=== PATIENT | male | born 1970 | race Caucasian/White ===

== ENCOUNTER 2018-10-12 03:39 | Emergency (ER) | payer MEDICAID, OTHER ==
[~2018-10-12] VITALS: Ht 170.2 cm; Wt 62.0 kg
[2018-10-12 03:41] VITALS: BP 128/78
--- NOTE | 2018-10-12 04:12 | NUR ---
[employer] OFFICER AT BEDSIDE TO INTERVIEW PATIENT.
== END 2018-10-12 04:41 | disposition home or self-care (01) ==
LOC: ER 03:40
DX: S01.81XA Laceration without foreign body of other part of head, initial encounter (principal); Z86.14 Personal history of Methicillin resistant Staphylococcus aureus infection; F15.90 Other stimulant use, unspecified, uncomplicated; Y04.0XXA Assault by unarmed brawl or fight, initial encounter; Y93.89 Activity, other specified; Y92.89 Other specified places as the place of occurrence of the external cause; Y99.8 Other external cause status
CPT/HCPCS: 12011; 99283

== ENCOUNTER 2018-10-15 01:01 | Emergency (ER) | payer OTHER ==
[~2018-10-15] VITALS: Ht 167.6 cm; Wt 58.9 kg
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
[2018-10-15] MEDS ORDERED: bacitracin 15gm ointment TP ONE (01:50)
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
[2018-10-15] MEDS ORDERED: ketorolac trometh inj. 60 MG/2 ML VIAL IM ONE (02:35)
[2018-10-15] MEDS ORDERED: acetaminophen 325mg tablet PO ONE (02:35)
[2018-10-15] MEDS ORDERED: normal saline 1000ML IV soln IVB ONE (03:55)
[2018-10-15] MEDS ORDERED: magnesium 2GM in 50ml NS 50 ML IV ONE (03:55)
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
[2018-10-15] MEDS ORDERED: adenosine 3mg/ml 2ml vial IV ONE (04:05)
[2018-10-15] MEDS ORDERED: LORazepam 2 mg/ml vial IV ONE (04:05)
--- NOTE | 2018-10-15 04:24 | NUR ---
Time out performed prior to giving 6mg of adensone patient rate slowed to 96bpm from 134bpm
[2018-10-15 05:33] LABS: BASOPHILS % (AUTO) 0.4 % (0-1); EOSINOPHILS # (AUTO) 0.7 X10'3 (0-0.9); EOSINOPHILS % (AUTO) 7.2 % (0-6); HEMOGLOBIN 11.2 g/dl (14.0-17.9); LYMPHOCYTES # (AUTO) 1.7 X10'3 (1.1-4.8); LYMPHOCYTES % (AUTO) 18.3 % (21-51); MEAN CORPUSCULAR HEMOGLOBIN 31.2 PG (27.0-31.0); MEAN CORPUSCULAR HGB CONC 33.9 % (33.0-36.5); MONOCYTES # (AUTO) 0.9 X10'3 (0-0.9); MONOCYTES % (AUTO) 9.4 % (2-12); NEUTROPHILS # (AUTO) 6.2 X10'3 (1.8-7.7); NEUTROPHILS % (AUTO) 64.7 % (42-75); PLATELET COUNT 175 X10'3 (140-440); RED BLOOD COUNT 3.59 X10'6 (4.70-6.10); RED CELL DISTRIBUTION WIDTH 13.2 % (11.5-14.5); WHITE BLOOD COUNT 9.5 X10'3 (4.5-11.0)
[2018-10-15 05:50] LABS: ALANINE AMINOTRANSFERASE 23 U/L (12-78); ALBUMIN 2.8 G/DL (3.4-5.0); ALBUMIN/GLOBULIN RATIO 1.1 (1.1-1.5); ALKALINE PHOSPHATASE 64 IU/L (46-116); ANION GAP 8 (8-16); ASPARTATE AMINO TRANSFERASE 24 U/L (10-37); BILIRUBIN,TOTAL 0.2 MG/DL (0.1-1.0); BLOOD UREA NITROGEN 15 MG/DL (7-18); BUN/CREATININE RATIO 22.4 (5.4-32.0); CALCIUM 6.6 MG/DL (8.5-10.1); CHLORIDE 111 MMOL/L (99-107); CREATININE 0.67 MG/DL (0.60-1.10); GLUCOSE 130 MG/DL (70-104); MAGNESIUM 2.2 MG/DL (1.5-2.4); SODIUM 143 MMOL/L (135-145); TOTAL CARBON DIOXIDE 24.4 MMOL/L (24-32); TOTAL PROTEIN 5.3 G/DL (6.4-8.2); eGFR > 90 ML/MIN
[2018-10-15 06:08] LABS: POTASSIUM 2.9 MMOL/L (3.5-5.1)
[2018-10-15] MEDS ORDERED: potassium Cl 20 mEq SR tablet PO STA (06:16)
[2018-10-15 06:38] VITALS: BP 106/68
== END 2018-10-15 06:42 | disposition home or self-care (01) ==
LOC: ER 01:02
DX: S01.01XA Laceration without foreign body of scalp, initial encounter (principal); S80.12XA Contusion of left lower leg, initial encounter; I47.1 Supraventricular tachycardia; E87.6 Hypokalemia; Z86.14 Personal history of Methicillin resistant Staphylococcus aureus infection; F15.90 Other stimulant use, unspecified, uncomplicated; Z59.0 Homelessness; Y04.8XXA Assault by other bodily force, initial encounter; Y93.89 Activity, other specified; Y92.89 Other specified places as the place of occurrence of the external cause; Y99.8 Other external cause status
CPT/HCPCS: 12001; 36415; 70450; 73590; 80053; 83735; 85025; 93005; 93971; 96365; 96366; 96372; 96375; 99284; J1885; J2060; J3475

== ENCOUNTER 2018-11-09 07:03 | Emergency (ER) | payer OTHER ==
[~2018-11-09] VITALS: Ht 167.6 cm; Wt 77.3 kg
[2018-11-09 07:07] VITALS: BP 106/64
--- NOTE | 2018-11-09 07:16 | NUR ---
PER MD ORDERS REMOVE THE ONE STAPLE FROM PT'S HEAD, NO REDNESS OR SWELLING OR PAIN.
== END 2018-11-09 07:30 | disposition home or self-care (01) ==
LOC: ER 07:04
DX: S01.01XD Laceration without foreign body of scalp, subsequent encounter (principal); F15.90 Other stimulant use, unspecified, uncomplicated; F19.90 Other psychoactive substance use, unspecified, uncomplicated; Z59.0 Homelessness; Z86.14 Personal history of Methicillin resistant Staphylococcus aureus infection; Y04.8XXD Assault by other bodily force, subsequent encounter
CPT/HCPCS: 99281

== ENCOUNTER 2022-06-19 09:05 | Emergency (ER) | payer MEDICAID ==
[~2022-06-19] VITALS: Ht 167.6 cm; Wt 63.6 kg
[2022-06-19 09:29] VITALS: BP 123/74
[2022-06-19] MEDS ORDERED: CEPH-585 PO (09:34)
== END 2022-06-19 09:48 | disposition home or self-care (01) ==
LOC: ER 09:05
DX: L02.511 Cutaneous abscess of right hand (principal); Z59.00 Homelessness unspecified
CPT/HCPCS: 99283

== ENCOUNTER 2022-09-27 20:16 | Emergency (ER) | payer MEDICAID ==
[~2022-09-27] VITALS: Ht 167.6 cm; Wt 61.8 kg
[~2022-09-27 20:16] MED LIST: CEPH-585 PO
[2022-09-27] MEDS ORDERED: LIDOcaine Viscous 15ml cup MM ONE (23:45)
[2022-09-27 23:46] VITALS: BP 120/70
== END 2022-09-28 00:06 | disposition home or self-care (01) ==
LOC: ER 20:16
DX: J02.9 Acute pharyngitis, unspecified (principal); F15.20 Other stimulant dependence, uncomplicated; Z59.00 Homelessness unspecified
CPT/HCPCS: 87081; 87880; 99283

== ENCOUNTER 2024-05-13 09:23 | Emergency (ER) | payer MEDICAID ==
[~2024-05-13] VITALS: Ht 162.6 cm; Wt 68.2 kg
[2024-05-13 09:25] VITALS: BP 131/84; PULSE 78; RESP 16; TEMP 98.4; O2SAT 99
[2024-05-13] MEDS ORDERED: BUPR1FIL3 SL (09:41)
[2024-05-13] MEDS ORDERED: NALO4SPR5 (09:44)
== END 2024-05-13 09:54 | disposition home or self-care (01) ==
LOC: ER 09:23
DX: F11.20 Opioid dependence, uncomplicated (principal); F15.90 Other stimulant use, unspecified, uncomplicated; Z79.899 Other long term (current) drug therapy
CPT/HCPCS: 99283

== ENCOUNTER 2024-07-25 17:39 | Inpatient (IN) | payer MEDICAID ==
[~2024-07-25] VITALS: Ht 170.2 cm; Wt 78.1 kg
[~2024-07-25 17:39] MED LIST changes: -CEPH-585 PO; +NALO4SPR5
[2024-07-25 18:12] LABS: BASOPHILS % (AUTO) 0.5 % (0-1); EOSINOPHILS # (AUTO) 0.1 X10'3 (0-0.9); EOSINOPHILS % (AUTO) 1.2 % (0-6); HEMATOCRIT 43.2 % (42.0-52.0); HEMOGLOBIN 14.4 g/dl (14.0-17.9); LYMPHOCYTES # (AUTO) 1.8 X10'3 (1.1-4.8); LYMPHOCYTES % (AUTO) 21.6 % (21-51); MEAN CORPUSCULAR HEMOGLOBIN 29.9 PG (27.0-31.0); MEAN CORPUSCULAR HGB CONC 33.4 g/dL (33.0-36.5); MEAN CORPUSCULAR VOLUME 89.5 FL (78-98); MEAN PLATELET VOLUME 8.2 FL (7.4-10.4); MONOCYTES # (AUTO) 0.7 X10'3 (0-0.9); NEUTROPHILS # (AUTO) 5.5 X10'3 (1.8-7.7); NEUTROPHILS % (AUTO) 67.7 % (42-75); PLATELET COUNT 228 X10'3 (140-440); RED BLOOD COUNT 4.82 X10'6 (4.70-6.10); RED CELL DISTRIBUTION WIDTH 14.1 % (11.5-14.5); WHITE BLOOD COUNT 8.2 X10'3 (4.5-11.0)
[2024-07-25 18:31] LABS: ALBUMIN 4.4 G/DL (3.4-5.0); ANION GAP 6 (8-16); BLOOD UREA NITROGEN 23 MG/DL (7-18); BUN/CREATININE RATIO 25.6 (10.0-20.0); CHLORIDE 101 MMOL/L (99-107); GLUCOSE 106 MG/DL (70-104); POTASSIUM 3.9 MMOL/L (3.5-5.1); SODIUM 136 MMOL/L (135-145); TOTAL CARBON DIOXIDE 28.8 MMOL/L (24-32); eCRCL 86 ML/MIN; eGFR 88 ML/MIN
[2024-07-25 18:32] LABS: ETHANOL < 10 MG/DL (<10)
[2024-07-25] MEDS ORDERED: BUPR1FIL3 SL (18:42)
[2024-07-25 19:15] LABS: URINE AMPHETAMINE SCREEN NEGATIVE (Neg); URINE BARBITUATE SCREEN NEGATIVE (Neg); URINE BENZODIAZEPINES SCREEN NEGATIVE (Neg); URINE CANNABINOID SCREEN NEGATIVE (Neg); URINE COCAINE SCREEN NEGATIVE (Neg); URINE METHADONE SCREEN NEGATIVE (Neg); URINE OPIATE SCREEN NEGATIVE (Neg); URINE PHENCYCLIDINE SCREEN NEGATIVE (Neg)
[2024-07-25 19:17] LABS: BILIRUBIN,URINE NEGATIVE (Neg); CLARITY,URINE CLEAR (Clear); COLOR,URINE YELLOW (Yellow); GLUCOSE, URINE NEGATIVE (Neg); KETONES,URINE TRACE mg/dl (Neg); LEUKOCYTE ESTERASE ,URINE NEGATIVE (Neg); NITRITES, URINE NEGATIVE (Neg); OCCULT BLOOD,URINE NEGATIVE (Neg); PH,URINE 6.5 (4.8-8.0); PROTEIN,URINE TRACE mg/dl (Neg); UROBILINOGEN,URINE 0.2 E.U/dL (0.2-1.0)
[2024-07-25 19:24] LABS: UA COLLECTION TYPE VOIDED
[2024-07-25 19:32] LABS: BACTERIA,URINE NONE SEEN /HPF (Neg); HYALINE CASTS 0-3 /LPF (NEGATIVE); MUCUS STRANDS MANY /LPF (Neg); RBC,URINE 0-2 /HPF (0-2); SQUAMOUS EPITHELIAL CELL,UR FEW /LPF (FEW)
[2024-07-25 19:33] LABS: WBC CASTS 0-3 /LPF (NEGATIVE)
[2024-07-25] MEDS: LORazepam 1 MG tablet PO ONE (19:51)
[2024-07-26] MEDS: LORazepam 1 MG tablet PO SCH (12:52)
[2024-07-26 14:27] VITALS: BP 115/69; PULSE 61; RESP 18; TEMP 97; O2SAT 99
[2024-07-26] MEDS ORDERED: acetaminophen 325mg tablet PO PRN ×2 (14:30)
[2024-07-26] MEDS ORDERED: loperamide 2mg capsule PO PRN (14:30)
[2024-07-26] MEDS ORDERED: mag hydrox/Alum hydrox/simeth 30ml oral suspension PO PRN (14:30)
[2024-07-26 14:59] VITALS: RESP 18; O2SAT 99
[2024-07-26] MEDS ORDERED: FLU VACC TS2024-25(6MOS UP)/PF 45 MCG/0.5 ML SYRINGE IMVAC ONE (16:50)
[2024-07-26 19:55] VITALS: RESP 14; O2SAT 97
[2024-07-26 19:58] VITALS: BP 100/72; PULSE 66; RESP 14; TEMP 97.6; O2SAT 97
[2024-07-26] MEDS: buprenorphine/naloxone 8MG-2MG SUBlingual film SL SCH (20:03)
[2024-07-27 07:15] VITALS: BP 93/54; PULSE 66; RESP 16; TEMP 97.9; O2SAT 95
[2024-07-27 09:00] LABS: CHOL/HDL RATIO 3.4 (0.00-4.99); CHOLESTEROL 178 MG/DL (0-200); HDL CHOLESTEROL 53 MG/DL (35-60); LDL CHOLESTEROL 108 MG/DL (50-100); TRIGLYCERIDES 55 MG/DL (20-135)
[2024-07-27 09:02] LABS: HEMOGLOBIN A1C 5.6 % (4.5-6.2)
[2024-07-27 09:04] VITALS: RESP 16; O2SAT 95
[2024-07-27] MEDS: FLU VACC TS2024-25(6MOS UP)/PF 45 MCG/0.5 ML SYRINGE IMVAC ONE (10:00)
[2024-07-27] MEDS: LORazepam 1 MG tablet PO ONE (14:47)
[2024-07-27] MEDS: FLUoxetine 20mg capsule PO ONE (17:55)
[2024-07-27 19:00] VITALS: RESP 16; O2SAT 94
[2024-07-27 19:23] VITALS: BP 101/57; PULSE 62; RESP 16; TEMP 98.9; O2SAT 94
[2024-07-28 07:00] VITALS: RESP 16; O2SAT 96
[2024-07-28 08:00] VITALS: BP 105/67; PULSE 75; RESP 16; TEMP 98.1; O2SAT 96
[2024-07-28] MEDS: FLUoxetine 20mg capsule PO SCH (08:20)
[2024-07-28 19:00] VITALS: BP 108/59; PULSE 60; RESP 18; TEMP 98.8; O2SAT 95
[2024-07-28] MEDS ORDERED: gabapentin 400mg capsule PO SCH (21:00)
[2024-07-28] MEDS: gabapentin 300mg capsule PO SCH (21:42)
[2024-07-28] MEDS: LORazepam 1 MG tablet PO SCH (21:42)
[2024-07-28] MEDS: magnesium hydroxide 30ml (MOM) UD suspension PO PRN (21:45)
[2024-07-29 05:25] LABS: HBSAG SCREEN Negative (Negative); HEP B CORE AB, IGM Negative (Negative); HEP B CORE AB, TOT Positive (Negative); HEP B SURF AB Reactive (.); HEPATITIS C VIRUS ANTIBODY Reactive (Non Reactive)
[2024-07-29 07:00] VITALS: BP 94/56; PULSE 55; RESP 14; TEMP 97.2; O2SAT 97
[2024-07-29] MEDS: BUPROPION HCL 150MG XL 24 HR 150 MG TAB PO SCH (08:35)
[2024-07-29 19:00] VITALS: BP 133/73; PULSE 63; RESP 16; TEMP 98.4; O2SAT 96
[2024-07-30 09:33] VITALS: BP 88/55; PULSE 60; RESP 16; TEMP 98; O2SAT 95
[2024-07-30 12:13] VITALS: RESP 16; O2SAT 95
[2024-07-30 19:00] VITALS: BP 90/53; PULSE 71; RESP 18; TEMP 97.3; O2SAT 96
[2024-07-31] MEDS ORDERED: LORazepam 1 MG tablet PO PRN (08:00)
[2024-07-31 11:00] VITALS: BP 110/48; PULSE 62; RESP 14; TEMP 97.6; O2SAT 98
[2024-07-31 11:02] VITALS: RESP 14; O2SAT 98
[2024-07-31] MEDS: gabapentin 400mg capsule PO SCH (13:13)
[2024-07-31 19:00] VITALS: BP 120/74; PULSE 57; RESP 16; TEMP 97.2; O2SAT 95
[2024-07-31] MEDS: LORazepam 0.5 MG tablet PO PRN (21:23)
[2024-08-01 07:40] VITALS: BP 103/62; PULSE 70; RESP 16; TEMP 98.1; O2SAT 98
[2024-08-01 09:41] VITALS: RESP 16; O2SAT 98
[2024-08-01] MEDS: gabapentin 300mg capsule PO SCH (13:40)
[2024-08-01 19:00] VITALS: RESP 14; O2SAT 95
[2024-08-01 20:00] VITALS: BP 98/51; PULSE 60; RESP 17; TEMP 97.4; O2SAT 95
[2024-08-02 07:39] VITALS: BP 98/63; PULSE 52; RESP 14; TEMP 97.1; O2SAT 94
[2024-08-02 08:40] VITALS: RESP 14; O2SAT 94
[2024-08-02] MEDS ORDERED: BUPR-94 PO (15:19)
[2024-08-02] MEDS ORDERED: gabapentin capsule PO (15:19)
[2024-08-02] MEDS ORDERED: BUPR1FIL3 SL (15:19)
[2024-08-02 19:00] VITALS: RESP 16; O2SAT 95
[2024-08-02 19:36] VITALS: BP 110/63; PULSE 52; RESP 14; TEMP 98.4; O2SAT 97
== END 2024-08-03 09:35 | disposition home or self-care (01) | DRG 754 ==
LOC: ER 17:39 → ED HOLD 07-26 12:00 → UNDOADMIN 07-26 12:00 → ED HOLD 07-26 14:17 → ADULT MH 07-26 14:19
PROVIDERS: ADMIT Psychiatry & Neurology Psychiatry; ATTEND Psychiatry & Neurology Psychiatry
PROC: GZHZZZZ Group Psychotherapy (ICD-10-PCS; principal; 2024-07-27)
PROC: GZ51ZZZ Individual Psychotherapy, Behavioral (ICD-10-PCS; 2024-07-27)
DX: F32.9 Major depressive disorder, single episode, unspecified (principal); R45.851 Suicidal ideations; F41.9 Anxiety disorder, unspecified; Z20.822 Contact with and (suspected) exposure to COVID-19; F15.90 Other stimulant use, unspecified, uncomplicated; F17.210 Nicotine dependence, cigarettes, uncomplicated; Z59.00 Homelessness unspecified
CPT/HCPCS: 36415; 80048; 80061; 80305; 80320; 81001; 83036; 84443; 85025; 86704; 86705; 86706; 86803; 87081; 87340; 87522; 87811; 90686; 93005; 99285

== ENCOUNTER 2024-11-25 11:00 | Inpatient (IN) | payer MEDICAID ==
[~2024-11-25] VITALS: Ht 167.6 cm; Wt 76.7 kg
[~2024-11-25 11:00] MED LIST changes: +BUPR-94 PO; +BUPR1FIL3 SL; -NALO4SPR5; +gabapentin capsule PO
[2024-11-25 11:31] LABS: BASOPHILS % (AUTO) 0.5 % (0-1); EOSINOPHILS # (AUTO) 0.3 X10'3 (0-0.9); EOSINOPHILS % (AUTO) 3.2 % (0-6); HEMATOCRIT 43.2 % (42.0-52.0); HEMOGLOBIN 14.3 g/dl (14.0-17.9); LYMPHOCYTES # (AUTO) 1.7 X10'3 (1.1-4.8); LYMPHOCYTES % (AUTO) 21.3 % (21-51); MEAN CORPUSCULAR HEMOGLOBIN 29.5 PG (27.0-31.0); MEAN CORPUSCULAR HGB CONC 33.1 g/dL (33.0-36.5); MEAN CORPUSCULAR VOLUME 89.1 FL (78-98); MEAN PLATELET VOLUME 8.2 FL (7.4-10.4); MONOCYTES # (AUTO) 0.5 X10'3 (0-0.9); MONOCYTES % (AUTO) 6.3 % (2-12); NEUTROPHILS # (AUTO) 5.4 X10'3 (1.8-7.7); NEUTROPHILS % (AUTO) 68.7 % (42-75); PLATELET COUNT 215 X10'3 (140-440); RED BLOOD COUNT 4.85 X10'6 (4.70-6.10); RED CELL DISTRIBUTION WIDTH 14.5 % (11.5-14.5); WHITE BLOOD COUNT 7.9 X10'3 (4.5-11.0)
[2024-11-25 12:04] LABS: ALBUMIN 4.1 G/DL (3.4-5.0); ANION GAP 7 (8-16); BLOOD UREA NITROGEN 15 MG/DL (7-18); BUN/CREATININE RATIO 15.3 (10.0-20.0); CALCIUM 8.7 MG/DL (8.5-10.1); CHLORIDE 102 MMOL/L (99-107); CREATININE 0.98 MG/DL (0.60-1.10); ETHANOL < 10 MG/DL (<10); GLUCOSE 94 MG/DL (70-104); POTASSIUM 3.8 MMOL/L (3.5-5.1); SODIUM 137 MMOL/L (135-145); THYROID STIMULATING HORMONE 2.38 ulU/ml (0.34-4.50); TOTAL CARBON DIOXIDE 28.2 MMOL/L (24-32); eCRCL 75 ML/MIN; eGFR 80 ML/MIN
[2024-11-25 12:58] LABS: BILIRUBIN,URINE NEGATIVE (Neg); CLARITY,URINE CLEAR (Clear); COLOR,URINE STRAW (Yellow); GLUCOSE, URINE NEGATIVE (Neg); KETONES,URINE NEGATIVE (Neg); LEUKOCYTE ESTERASE ,URINE NEGATIVE (Neg); NITRITES, URINE NEGATIVE (Neg); OCCULT BLOOD,URINE NEGATIVE (Neg); PROTEIN,URINE NEGATIVE (Neg); UROBILINOGEN,URINE 0.2 E.U/dL (0.2-1.0)
[2024-11-25 13:04] LABS: UA COLLECTION TYPE CLN CATCH MIDSTREAM
[2024-11-25 13:18] LABS: URINE AMPHETAMINE SCREEN NEGATIVE (Neg); URINE BARBITUATE SCREEN NEGATIVE (Neg); URINE BENZODIAZEPINES SCREEN NEGATIVE (Neg); URINE CANNABINOID SCREEN NEGATIVE (Neg); URINE COCAINE SCREEN NEGATIVE (Neg); URINE METHADONE SCREEN NEGATIVE (Neg); URINE OPIATE SCREEN NEGATIVE (Neg); URINE PHENCYCLIDINE SCREEN NEGATIVE (Neg)
[2024-11-25] MEDS ORDERED: BUPR1FIL20 PO (16:31)
[2024-11-25] MEDS ORDERED: QUET100T34 PO (16:31)
[2024-11-25] MEDS ORDERED: HYDR50TA65 PO (16:31)
[2024-11-25] MEDS ORDERED: PALI9TAB4 PO (16:31)
[2024-11-25] MEDS: hydrOXYzine 25 MG tablet PO SCH (17:27)
[2024-11-25 20:00] VITALS: RESP 16; O2SAT 93
[2024-11-25] MEDS ORDERED: acetaminophen 325mg tablet PO PRN ×2 (20:00)
[2024-11-25] MEDS ORDERED: loperamide 2mg capsule PO PRN (20:00)
[2024-11-25] MEDS ORDERED: mag hydrox/Alum hydrox/simeth 30ml oral suspension PO PRN (20:00)
[2024-11-25 20:02] VITALS: BP 106/64; PULSE 65; RESP 16; TEMP 97; O2SAT 93
[2024-11-25] MEDS: buprenorphine/naloxone 8MG-2MG SUBlingual film SL SCH (20:09)
[2024-11-25] MEDS: PALIPERIDONE 3 MG TAB.ER.24 PO SCH (20:09)
[2024-11-25] MEDS: quetiapine 100mg tablet PO SCH (20:09)
[2024-11-26 06:05] LABS: CHOL/HDL RATIO 3.6 (0.00-4.99); CHOLESTEROL 200 MG/DL (0-200); HDL CHOLESTEROL 56 MG/DL (35-60); LDL CHOLESTEROL 123 MG/DL (50-100); TRIGLYCERIDES 124 MG/DL (20-135)
[2024-11-26 06:08] LABS: HEMOGLOBIN A1C 5.8 % (4.5-6.2)
[2024-11-26 07:00] VITALS: RESP 16; O2SAT 94
[2024-11-26 08:00] VITALS: BP 115/65; PULSE 64; RESP 16; TEMP 97.9; O2SAT 94
[2024-11-26] MEDS: QUEtiapine 25mg tablet PO ONE (17:37)
[2024-11-26 19:00] VITALS: RESP 16; O2SAT 93
[2024-11-26 19:32] VITALS: BP 97/62; PULSE 76; RESP 16; TEMP 97.8; O2SAT 93
[2024-11-26] MEDS: quetiapine 100mg tablet PO SCH (20:36)
[2024-11-26] MEDS: LORazepam 1 MG tablet PO ONE (23:15)
[2024-11-27] MEDS: diphenhydrAMINE 25mg capsule PO ONE ×3 (02:20→13:46)
[2024-11-27] MEDS: haloperidol lactate 5mg/ml inj IM ONE (06:21)
[2024-11-27] MEDS: LORazepam 2 mg/ml vial IM ONE (06:21)
[2024-11-27] MEDS: diphenhydrAMINE 50 mg/ml inj IM ONE (06:21)
[2024-11-27] MEDS: buprenorphine/naloxone 8MG-2MG SUBlingual film SL SCH (06:59)
[2024-11-27 07:00] VITALS: RESP 18; O2SAT 93
[2024-11-27 07:35] VITALS: BP 120/82; PULSE 73; RESP 18; TEMP 98; O2SAT 93
[2024-11-27] MEDS: LORazepam 1 MG tablet PO ONE (12:48)
[2024-11-27] MEDS: haloperidol 5mg tablet PO ONE (12:49)
[2024-11-27 17:00] VITALS: BP 188/99; PULSE 137
[2024-11-27] MEDS: normal saline 1000ml 1,000 ML IV ONE (17:40)
[2024-11-27] MEDS: diazepam inj 5 MG/ML inj. IM ONE (17:47)
[2024-11-27] MEDS: LORazepam 2 mg/ml vial IV ONE (18:01)
[2024-11-27 18:12] VITALS: BP 113/80; PULSE 104
[2024-11-27 19:00] VITALS: RESP 16; O2SAT 94
[2024-11-27 20:00] VITALS: BP 130/78; PULSE 86; RESP 16; TEMP 98; O2SAT 94
[2024-11-27] MEDS ORDERED: QUEtiapine 25mg tablet PO PRN (21:35)
[2024-11-28 08:00] VITALS: BP 107/65; PULSE 63; RESP 16; TEMP 97.7; O2SAT 94
[2024-11-28] MEDS: haloperidol 5mg tablet PO SCH ×2 (08:12→20:46)
[2024-11-28] MEDS: LORazepam 1 MG tablet PO SCH (13:13)
[2024-11-28] MEDS: buprenorphine/naloxone 8MG-2MG SUBlingual film SL SCH (14:26)
[2024-11-28 19:00] VITALS: RESP 18; O2SAT 98
[2024-11-28 20:00] VITALS: BP 116/76; PULSE 65; RESP 18; TEMP 98.2
[2024-11-29] VITALS (22 sets, daily range): BP systolic 94–120; BP diastolic 52–76; PULSE 59–80; RESP 8–14; TEMP 97–98.7; O2SAT 92–95
[2024-11-29] MEDS ORDERED: buprenorphine/naloxone 8MG-2MG SUBlingual film SL SCH (08:00)
[2024-11-29] MEDS: magnesium hydroxide 30ml (MOM) UD suspension PO PRN (17:19)
[2024-11-29] MEDS: LORazepam 1 MG tablet PO ONE (21:40)
[2024-11-30 07:00] VITALS: RESP 16; O2SAT 93
[2024-11-30 08:00] VITALS: BP 86/57; PULSE 62; RESP 16; TEMP 98; O2SAT 93
[2024-11-30 10:01] LABS: BASOPHILS % (AUTO) 0.7 % (0-1); EOSINOPHILS # (AUTO) 0.4 X10'3 (0-0.9); EOSINOPHILS % (AUTO) 5.2 % (0-6); HEMATOCRIT 45.1 % (42.0-52.0); MEAN CORPUSCULAR HEMOGLOBIN 29.6 PG (27.0-31.0); MEAN CORPUSCULAR HGB CONC 33.4 g/dL (33.0-36.5); MEAN CORPUSCULAR VOLUME 88.6 FL (78-98); MEAN PLATELET VOLUME 7.9 FL (7.4-10.4); MONOCYTES # (AUTO) 0.8 X10'3 (0-0.9); MONOCYTES % (AUTO) 11.1 % (2-12); PLATELET COUNT 222 X10'3 (140-440); RED BLOOD COUNT 5.09 X10'6 (4.70-6.10); RED CELL DISTRIBUTION WIDTH 14.2 % (11.5-14.5); WHITE BLOOD COUNT 7.2 X10'3 (4.5-11.0)
[2024-11-30 10:15] LABS: ALANINE AMINOTRANSFERASE 23 U/L (12-78); ALBUMIN 3.9 G/DL (3.4-5.0); ALBUMIN/GLOBULIN RATIO 1.1 (1.1-1.5); ALKALINE PHOSPHATASE 75 IU/L (46-116); ANION GAP 3 (8-16); ASPARTATE AMINO TRANSFERASE 11 U/L (10-37); BILIRUBIN,TOTAL 0.5 MG/DL (0.1-1.0); BLOOD UREA NITROGEN 28 MG/DL (7-18); BUN/CREATININE RATIO 31.1 (10.0-20.0); CALCIUM 8.8 MG/DL (8.5-10.1); CHLORIDE 105 MMOL/L (99-107); GLUCOSE 92 MG/DL (70-104); POTASSIUM 4.5 MMOL/L (3.5-5.1); SODIUM 140 MMOL/L (135-145); TOTAL CARBON DIOXIDE 32.5 MMOL/L (24-32); TOTAL PROTEIN 7.4 G/DL (6.4-8.2); eCRCL 85 ML/MIN; eGFR 88 ML/MIN
[2024-11-30 11:56] LABS: BILIRUBIN,URINE NEGATIVE (Neg); CLARITY,URINE SLIGHTLY CLOUDY (Clear); COLOR,URINE YELLOW (Yellow); GLUCOSE, URINE NEGATIVE (Neg); KETONES,URINE NEGATIVE (Neg); LEUKOCYTE ESTERASE ,URINE TRACE (Neg); NITRITES, URINE NEGATIVE (Neg); OCCULT BLOOD,URINE NEGATIVE (Neg); PROTEIN,URINE NEGATIVE (Neg); UROBILINOGEN,URINE 0.2 E.U/dL (0.2-1.0)
[2024-11-30 12:02] LABS: UA COLLECTION TYPE NON-SPECIFIED
[2024-11-30 12:04] LABS: BACTERIA,URINE FEW /HPF (Neg); MUCUS STRANDS MODERATE /LPF (Neg); RBC,URINE NONE SEEN /HPF (0-2); SQUAMOUS EPITHELIAL CELL,UR FEW /LPF (FEW); WBC,URINE 30-50 /HPF (0-4)
[2024-11-30 13:14] LABS: URINE AMPHETAMINE SCREEN NEGATIVE (Neg); URINE BARBITUATE SCREEN NEGATIVE (Neg); URINE BENZODIAZEPINES SCREEN POSITIVE (Neg); URINE CANNABINOID SCREEN NEGATIVE (Neg); URINE COCAINE SCREEN NEGATIVE (Neg); URINE METHADONE SCREEN NEGATIVE (Neg); URINE OPIATE SCREEN NEGATIVE (Neg); URINE PHENCYCLIDINE SCREEN NEGATIVE (Neg)
[2024-11-30 19:00] VITALS: RESP 11; O2SAT 96
[2024-11-30 20:00] VITALS: BP 93/44; PULSE 68; RESP 11; TEMP 98.2; O2SAT 96
[2024-12-01 07:00] VITALS: RESP 14; O2SAT 96
[2024-12-01 08:00] VITALS: BP_SYST 88; BP_SYST 99; BP_DIAS 55; BP_DIAS 61; PULSE 55; RESP 14; TEMP 98.8; O2SAT 96
[2024-12-01 19:00] VITALS: RESP 17; O2SAT 100
[2024-12-01 20:00] VITALS: BP 112/63; PULSE 63; RESP 17; TEMP 97.6; O2SAT 100
[2024-12-02 07:00] VITALS: RESP 12; O2SAT 99
[2024-12-02] MEDS: hydrOXYzine 25 MG tablet PO PRN (07:23)
[2024-12-02 08:00] VITALS: BP 107/66; PULSE 63; RESP 12; TEMP 97.6; O2SAT 99
[2024-12-02] MEDS: buprenorphine/naloxone 8MG-2MG SUBlingual film SL SCH (15:33)
[2024-12-02 19:00] VITALS: RESP 16; O2SAT 96
[2024-12-02 20:00] VITALS: BP 110/80; PULSE 60; RESP 16; TEMP 98.1; O2SAT 96
[2024-12-02] MEDS ORDERED: LORazepam 1 MG tablet PO ONE (21:00)
[2024-12-03 06:55] VITALS: BP 90/47; PULSE 52; RESP 14; TEMP 97.9; O2SAT 99
[2024-12-03 08:55] VITALS: RESP 14; O2SAT 99
[2024-12-03 09:13] VITALS: BP 109/70; PULSE 60
[2024-12-03 19:00] VITALS: RESP 17; O2SAT 99
[2024-12-03 19:30] VITALS: BP 120/84; PULSE 60; RESP 17; TEMP 98; O2SAT 99
[2024-12-04 07:00] VITALS: BP 103/69; PULSE 51; RESP 16; TEMP 96.9; O2SAT 97
[2024-12-04] MEDS: haloperidol 5mg tablet PO SCH (07:33)
[2024-12-04] MEDS ORDERED: HYDR-3686 PO (09:08)
[2024-12-04] MEDS ORDERED: HALO5TAB PO (09:08)
[2024-12-04] MEDS: hydrOXYzine 25 MG tablet PO PRN (13:50)
[2024-12-04 19:00] VITALS: BP 81/50; PULSE 63; RESP 14; TEMP 97.3; O2SAT 95
[2024-12-04 20:00] VITALS: BP 100/59
[2024-12-05 07:00] VITALS: RESP 12; O2SAT 95
[2024-12-05 08:00] VITALS: BP 90/50; PULSE 56; RESP 12; TEMP 98.5; O2SAT 95
== END 2024-12-05 12:47 | disposition home or self-care (01) | DRG 776 ==
LOC: ER 11:01 → ADULT MH 17:30
PROVIDERS: ADMIT Psychiatry & Neurology Psychiatry; ATTEND Psychiatry & Neurology Psychiatry
PROC: GZHZZZZ Group Psychotherapy (ICD-10-PCS; principal; 2024-11-26)
DX: F15.951 Other stimulant use, unspecified with stimulant-induced psychotic disorder with hallucinations (principal); R45.851 Suicidal ideations; I50.32 Chronic diastolic (congestive) heart failure; R44.0 Auditory hallucinations; F32.9 Major depressive disorder, single episode, unspecified; Z20.822 Contact with and (suspected) exposure to COVID-19; Z79.899 Other long term (current) drug therapy; F17.210 Nicotine dependence, cigarettes, uncomplicated; Z59.00 Homelessness unspecified
CPT/HCPCS: 36415; 70450; 80048; 80053; 80061; 80305; 80320; 81001; 81003; 83036; 84443; 85025; 87081; 87088; 87811; 93005; 99285; J1200; J1630; J2060; J3360; J7030; Q0163; Q0177

== ENCOUNTER 2025-01-03 08:58 | Emergency (ER) | payer MEDICAID ==
[~2025-01-03] VITALS: Ht 167.6 cm; Wt 74.5 kg
[~2025-01-03 08:58] MED LIST changes: -BUPR-94 PO; +BUPR1FIL20 PO; +HALO5TAB PO; +HYDR-3686 PO; +HYDR50TA65 PO; +QUET100T34 PO
[2025-01-03 09:07] VITALS: TEMP 97.3
[2025-01-03 09:16] VITALS: BP 122/84; PULSE 98; O2SAT 98
[2025-01-03 10:13] LABS: BASOPHILS # (AUTO) 0.1 X10'3 (0-0.2); BASOPHILS % (AUTO) 0.6 % (0-1); EOSINOPHILS # (AUTO) 0.2 X10'3 (0-0.9); EOSINOPHILS % (AUTO) 2.5 % (0-6); HEMATOCRIT 40.6 % (42.0-52.0); HEMOGLOBIN 13.5 g/dl (14.0-17.9); LYMPHOCYTES # (AUTO) 1.9 X10'3 (1.1-4.8); LYMPHOCYTES % (AUTO) 21.6 % (21-51); MEAN CORPUSCULAR HEMOGLOBIN 28.5 PG (27.0-31.0); MEAN CORPUSCULAR HGB CONC 33.3 g/dL (33.0-36.5); MEAN CORPUSCULAR VOLUME 85.7 FL (78-98); MEAN PLATELET VOLUME 8.1 FL (7.4-10.4); MONOCYTES # (AUTO) 0.8 X10'3 (0-0.9); MONOCYTES % (AUTO) 9.5 % (2-12); NEUTROPHILS # (AUTO) 5.7 X10'3 (1.8-7.7); NEUTROPHILS % (AUTO) 65.8 % (42-75); PLATELET COUNT 216 X10'3 (140-440); RED BLOOD COUNT 4.73 X10'6 (4.70-6.10); RED CELL DISTRIBUTION WIDTH 13.8 % (11.5-14.5); WHITE BLOOD COUNT 8.7 X10'3 (4.5-11.0)
[2025-01-03 10:47] LABS: ALBUMIN 4.4 G/DL (3.4-5.0); ANION GAP 8 (8-16); BLOOD UREA NITROGEN 18 MG/DL (7-18); BUN/CREATININE RATIO 22.5 (10.0-20.0); CALCIUM 8.8 MG/DL (8.5-10.1); CHLORIDE 106 MMOL/L (99-107); GLUCOSE 70 MG/DL (70-104); POTASSIUM 4.1 MMOL/L (3.5-5.1); SODIUM 143 MMOL/L (135-145); TOTAL CARBON DIOXIDE 29.3 MMOL/L (24-32); eCRCL 95 ML/MIN; eGFR > 90 ML/MIN
[2025-01-03 12:06] LABS: ETHANOL < 10 MG/DL (<10)
[2025-01-03 12:06] LABS: BILIRUBIN,URINE NEGATIVE (Neg); CLARITY,URINE CLEAR (Clear); COLOR,URINE YELLOW (Yellow); GLUCOSE, URINE NEGATIVE (Neg); KETONES,URINE NEGATIVE (Neg); LEUKOCYTE ESTERASE ,URINE NEGATIVE (Neg); NITRITES, URINE NEGATIVE (Neg); OCCULT BLOOD,URINE NEGATIVE (Neg); PROTEIN,URINE NEGATIVE (Neg); UROBILINOGEN,URINE 0.2 E.U/dL (0.2-1.0)
[2025-01-03 12:19] LABS: UA COLLECTION TYPE VOIDED
[2025-01-03 12:23] LABS: URINE AMPHETAMINE SCREEN NEGATIVE (Neg); URINE BARBITUATE SCREEN NEGATIVE (Neg); URINE BENZODIAZEPINES SCREEN NEGATIVE (Neg); URINE CANNABINOID SCREEN NEGATIVE (Neg); URINE COCAINE SCREEN NEGATIVE (Neg); URINE METHADONE SCREEN NEGATIVE (Neg); URINE OPIATE SCREEN NEGATIVE (Neg); URINE PHENCYCLIDINE SCREEN NEGATIVE (Neg)
[2025-01-03] MEDS: diphenhydrAMINE 50 mg/ml inj IM ONE (13:17)
[2025-01-03] MEDS: ziprasidone IM 20mg inj **IM only IM ONE (13:18)
[2025-01-03] MEDS ORDERED: CEPH-585 PO (13:43)
[2025-01-03] MEDS: MIDAZolam 5mg/ml 2ml vial IM ONE (14:03)
[2025-01-03] MEDS: haloperidol lactate 5mg/ml inj IM ONE (14:04)
[2025-01-03] MEDS: erythromycin ophthalmic ointment 1gm tube RIGHTEYE STA (14:04)
[2025-01-03 14:54] VITALS: RESP 16
== END 2025-01-03 14:30 ==
LOC: ER 08:59
DX: R44.1 Visual hallucinations (principal); R44.0 Auditory hallucinations; F41.9 Anxiety disorder, unspecified; F15.90 Other stimulant use, unspecified, uncomplicated; F17.210 Nicotine dependence, cigarettes, uncomplicated
CPT/HCPCS: 36415; 80048; 80305; 80320; 81003; 85025; 96372; 99285; J1200; J1630; J2250; J3486